=== PATIENT | female | born 1965 | race Caucasian/White ===

== ENCOUNTER 2020-03-12 16:06 | Outpatient (REF) | payer MEDICARE, MEDICAID, SELFPAY ==
--- NOTE | 2020-03-12 | US_ITS ---
EXAMINATION: US THYROID CLINICAL INFORMATION: Nontoxic multinodular goiter. COMPARISON: Ultrasound soft tissue head/neck thyroid dated 04/15/2019 and 09/17/2018 TECHNIQUE: Linear transducer xavier-scale and color Doppler examination with attention to the region of the thyroid. FINDINGS: SIZE: Measurements of the thyroid lobes and nodules are given in sagittal, anteroposterior and transverse dimensions respectively. Right Thyroid Lobe: 4.7 x 1.5 x 1.7 cm, volume 6.3 mL. Previously 4.6 x 1.5 x 1.7 cm, volume 6.1 mL. Parenchyma: The gland echotexture is homogeneous. Thyroid vascularity is normal. Left Thyroid Lobe: 4.6 x 1.3 x 1.6 cm, volume 5.0 mL. Previously 4.7 x 1.2 x 1.9 cm, volume 5.6 mL. Parenchyma: The gland echotexture is homogeneous. Thyroid vascularity is normal. Isthmus: 0.3 cm in maximum AP dimension. Previously 0.4 cm. RIGHT THYROID LOBE: There are 2 nodules seen. 1. Location: Inferior. Size: 0.3 x 0.2 x 0.2 cm. Previous: 0.4 x 0.2 x 0.4 cm. 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 2. Location: Middle. Size: 0.7 x 0.4 x 0.5 cm. Previous: Not documented on the prior study. Nodule characteristics: Hypoechoic, smoothly marginated with intranodular flow. ISTHMUS: No nodules. LEFT THYROID LOBE: There are 4 nodules seen. 1. Location: Superior/middle. Size: 0.3 x 0.3 x 0.4 cm. Previous: 0.5 x 0.3 x 0.5 cm. Nodule characteristics: Hypoechoic, smoothly marginated with no intranodular flow but likely complex cyst. 2. Location: Superior/middle. Size: 0.9 x 0.7 x 0.8 cm. Previous: 1.1 x 0.7 x 0.8 cm. Nodule characteristics: Hypoechoic, smoothly marginated with intranodular flow. 3. Location: Middle. Size: 0.6 x 0.4 x 0.7 cm. Previous: 1.0 x 0.5 x 0.6 cm. Nodule characteristics: Hypoechoic, smoothly marginated with no intranodular flow. 4. Location: Middle/inferior. Size: 0.4 x 0.3 x 0.4 cm. Previous: 0.3 x 0.2 x 0.4 cm. Nodule characteristics: Hypoechoic, smoothly marginated with no intranodular flow. NODES: No lymphadenopathy is seen in the tissue surrounding the thyroid gland. US/US thyroid IMPRESSION: Bilateral centimeter or subcentimeter thyroid nodules nonsuspicious at this time.
== END 2020-03-12 16:07 | disposition home or self-care (01) ==
LOC: HO.US 16:06
PROVIDERS: Visit Provider Internal Medicine Endocrinology, Diabetes & Metabolism
DX: E04.2 Nontoxic multinodular goiter (principal)
CPT/HCPCS: 76536

== ENCOUNTER → 2020-04-15 08:54 | Outpatient (BNVA) | payer MEDICARE, MEDICAID, SELFPAY | PROVIDERS: PCP Internal Medicine; Referring Provider Internal Medicine; Visit Provider Internal Medicine Endocrinology, Diabetes & Metabolism | DX: E04.2 Nontoxic multinodular goiter (principal); E66.01 Morbid (severe) obesity due to excess calories; Z79.899 Other long term (current) drug therapy | CPT/HCPCS: Q3014 ==

== ENCOUNTER 2021-08-23 15:32 | Outpatient (REF) | payer MEDICARE, MEDICAID, SELFPAY ==
--- NOTE | ~2021-08-23 | XR_ITS ---
EXAMINATION: LUMBAR AND THORACIC SPINE CLINICAL INFORMATION: Low back pain. COMPARISON: None TECHNIQUE: Lumbar spine 3 views. Thoracic spine 2 views. FINDINGS: Lumbar spine: There is normal lumbar lordosis. There is minimal anterolisthesis L4 over L5. Rest the vertebral alignment is normal. There is loss of disc height virtually at every disc level with moderate ventral and posterior spondylosis. No acute fracture, dislocation or lytic process seen. The soft tissues are normal. Thoracic spine: There is maintained thoracic kyphosis. There is mild dextroscoliosis of dorsal spine. The vertebral heights, vertebral alignment and disc heights are normal. There is moderate spondylosis dorsal spine. No visible acute fracture or dislocation seen. Incidental finding of lower cervical fusion with ventral hardware noted. XR/XR lumbar spine 2-3V IMPRESSION: Degenerative disc changes with spondylosis at all lumbar disc levels. No acute fracture or lytic process seen. There is mild dextroscoliosis dorsal spine with right para midline spondylosis. No visible acute fracture or lytic process seen.
--- NOTE | ~2021-08-23 | XR_ITS ---
EXAMINATION: LUMBAR AND THORACIC SPINE CLINICAL INFORMATION: Low back pain. COMPARISON: None TECHNIQUE: Lumbar spine 3 views. Thoracic spine 2 views. FINDINGS: Lumbar spine: There is normal lumbar lordosis. There is minimal anterolisthesis L4 over L5. Rest the vertebral alignment is normal. There is loss of disc height virtually at every disc level with moderate ventral and posterior spondylosis. No acute fracture, dislocation or lytic process seen. The soft tissues are normal. Thoracic spine: There is maintained thoracic kyphosis. There is mild dextroscoliosis of dorsal spine. The vertebral heights, vertebral alignment and disc heights are normal. There is moderate spondylosis dorsal spine. No visible acute fracture or dislocation seen. Incidental finding of lower cervical fusion with ventral hardware noted. XR/XR thoracic spine 2V IMPRESSION: Degenerative disc changes with spondylosis at all lumbar disc levels. No acute fracture or lytic process seen. There is mild dextroscoliosis dorsal spine with right para midline spondylosis. No visible acute fracture or lytic process seen.
== END 2021-08-23 15:33 | disposition home or self-care (01) ==
LOC: HO.XRAY 15:32
PROVIDERS: PCP Internal Medicine; Visit Provider Internal Medicine
DX: M54.50 Low back pain, unspecified (principal); M54.6 Pain in thoracic spine
CPT/HCPCS: 72070; 72100

== ENCOUNTER 2021-10-25 21:43 | Emergency (ER) | payer MEDICARE, MEDICAID, SELFPAY ==
[2021-10-25 22:01] VITALS: BP 129/57; PULSE 93; RESP 18; TEMP 36.9; O2SAT 96; BMI 51.2
[2021-10-25 22:22] VITALS: BP 132/60; PULSE 92; TEMP 37.1; O2SAT 97
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
== END 2021-10-25 23:06 | disposition home or self-care (01) ==
PROVIDERS: Emergency Provider Internal Medicine; PCP Internal Medicine
DX: S61.213A Laceration without foreign body of left middle finger without damage to nail, initial encounter (principal); W29.3XXA Contact with powered garden and outdoor hand tools and machinery, initial encounter; Y93.H2 Activity, gardening and landscaping; Y92.017 Garden or yard in single-family (private) house as the place of occurrence of the external cause; Y99.9 Unspecified external cause status
CPT/HCPCS: 99282; 99283

== ENCOUNTER 2021-11-11 14:02 | Outpatient (REF) | payer MEDICARE, MEDICAID, SELFPAY ==
--- NOTE | ~2021-11-11 | US_ITS ---
EXAMINATION: US THYROID CLINICAL INFORMATION: Nontoxic multinodular goiter. COMPARISON: US thyroid 03/12/2020 and 04/15/2019. TECHNIQUE: Linear transducer grayscale and color Doppler examination with attention to the region of the thyroid. FINDINGS: SIZE: Measurements of the thyroid lobes and nodules are given in sagittal, anteroposterior and transverse dimensions respectively. Right Thyroid Lobe: 5.1 x 1.6 x 2.0 cm, volume 8.6 mL. Previously 4.7 x 1.5 x 1.7 cm, volume 6.3 mL. Parenchyma: The gland echotexture is homogeneous. Thyroid vascularity is normal. Left Thyroid Lobe: 4.4 x 1.2 x 1.8 cm, volume 5.0 mL. Previously 4.6 x 1.3 x 1.6 cm, volume 5.0 mL. Parenchyma: The gland echotexture is homogeneous. Thyroid vascularity is normal. Isthmus: 0.3 cm in maximum AP dimension. Previously 0.3 cm. Estimated total number of nodules greater than or equal to 1 cm: 1. Laboratory [place] nodules are described as follows: 1. Location: Left superior. Size: 1.2 x 0.9 x 0.9 cm, volume 0.53 mL. Previously: 0.9 x 0.7 x 0.8 cm, volume 0.26 mL. Nodule characteristics: Composition: Solid (2). Echogenicity: Hypoechoic (2). Shape: Not taller than wide (0). Margins: Ill-defined (0). Echogenic Foci: None (0). ACR TI-RADS total points: 4 ACR TI-RADS category: 4 Significant change in size (>/= 20% in 2 dimensions and minimal increase of 2 mm or 50% or greater increase in volume): Minimal. Change in features: None. Change in ACR TI-RADS risk category: Not applicable. NODES: No lymphadenopathy is seen in the tissue surrounding the thyroid gland. US/US thyroid IMPRESSION: No significant change in the size of the left upper pole nodule. Recommend continued follow-up. The thyroid gland is unremarkable with no major change. ACR TI-RADS RECOMMENDATION REFERENCE: Ultrasound-guided fine-needle aspiration, followup ultrasound, no further follow up. * TR1 (0 point) and TR 2 (2 points): No FNA or follow up * TR3 (3 points): FNA if more than or equal to 2.5 cm in maximum dimension, followup ultrasound in 1, 3 and 5 years if 1.5 to 2.4 cm in maximum dimension. * TR4 (4-6 points): FNA if more than or equal to 1.5 cm in maximum dimension, followup ultrasound in 1, 2, 3 and 5 years if 1 to 1.4 cm in maximum dimension. * TR5 (more than or equal to 7 points): FNA if more than or equal to 1 cm in maximum dimension, followup ultrasound every year for 5 years if 0.5 to 0.9 cm in maximum dimension. * TR3, TR4 or TR5 nodules that are below the size threshold for follow up receive no follow up.
== END 2021-11-11 14:03 | disposition home or self-care (01) ==
LOC: HO.HMGCX 14:02
PROVIDERS: Visit Provider Internal Medicine
DX: E04.2 Nontoxic multinodular goiter (principal)
CPT/HCPCS: 76536

== ENCOUNTER 2021-11-29 11:29 | Outpatient (REF) | payer MEDICARE, MEDICAID, SELFPAY ==
--- NOTE | ~2021-11-29 | XR_ITS ---
EXAMINATION: XR RIBS, RIGHT CLINICAL INFORMATION: Contusion to chest wall COMPARISON: None TECHNIQUE: 3 views of the right ribs and one view of the chest were obtained. FINDINGS: The cardiac and mediastinal contours are stable. The lungs are clear. There is no pleural effusion or pneumothorax. No rib fracture is seen. There are degenerative changes of the spine. There are postsurgical changes to the cervical spine. XR/XR ribs RT min 3V w CXR1V IMPRESSION: No evidence for acute disease in the chest. No rib fracture seen.
== END 2021-11-29 11:30 | disposition home or self-care (01) ==
LOC: HO.HMGCX 11:29
PROVIDERS: Visit Provider Internal Medicine
DX: S20.211A Contusion of right front wall of thorax, initial encounter (principal); X58.XXXA Exposure to other specified factors, initial encounter; Y93.9 Activity, unspecified; Y92.9 Unspecified place or not applicable; Y99.8 Other external cause status
CPT/HCPCS: 71101

== ENCOUNTER → 2022-04-21 11:09 | Outpatient (REF) | payer MEDICARE, MEDICAID, SELFPAY ==
--- NOTE | 2022-04-21 11:22 | CA_ITS ---
Acquisition Time: 2022-04-21 12:03:45 Total Exercise Time: 00:12:47 Test Indications: R07.9 CHEST PAIN Medications: Protocol: DOBUTAMINE Max HR: 146 BPM 90% of Pred: 162 BPM Max BP: 160/070 mmHG Max Work Load: 1.0 METS Pharmacological stress with Dobutamin infusion per protocol to max of 20mcg/kg/min, achieving 88% MPHR, without anginal symptoms, without arrythmia, with normotensive response to infusion, without EKG changes meeting criteria for ischemia. Echo images obtained by tech at rest, at dobutamine dose of 10mcg/kg/ min and again at peak heart rate. Definity contrast used. Test reviewed with Dr Tyler. Referred By: Alirio Valdovinos Overread By: OCTAVIA MILLER
== END ==
LOC: HO.CARD 11:09
PROVIDERS: PCP Internal Medicine; Visit Provider Internal Medicine
DX: R07.9 Chest pain, unspecified (principal)
CPT/HCPCS: 93351; J0280; J1250; J2785; Q9957

== ENCOUNTER → 2022-11-17 14:38 | Outpatient (BNVA) | payer MEDICARE, MEDICAID, SELFPAY | PROVIDERS: PCP Internal Medicine; Visit Provider Physician Assistant | DX: Z12.11 Encounter for screening for malignant neoplasm of colon (principal); J45.909 Unspecified asthma, uncomplicated | CPT/HCPCS: 99202 ==

== ENCOUNTER 2023-02-09 14:16 | Outpatient (AMB) | payer MEDICARE, MEDICAID, SELFPAY ==
[2023-02-09 14:17] VITALS: BP 128/72; PULSE 73; O2SAT 97; BMI 49.0
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
== END 2023-02-09 15:19 | disposition home or self-care (01) ==
PROVIDERS: PCP Internal Medicine; Visit Provider Internal Medicine
DX: I10 Essential (primary) hypertension (principal); K21.9 Gastro-esophageal reflux disease without esophagitis; E04.1 Nontoxic single thyroid nodule; E66.01 Morbid (severe) obesity due to excess calories; Z68.42 Body mass index [BMI] 45.0-49.9, adult; F41.1 Generalized anxiety disorder; E78.00 Pure hypercholesterolemia, unspecified
CPT/HCPCS: 99214

== ENCOUNTER 2023-02-24 11:32 | Outpatient (REF) | payer MEDICARE, MEDICAID, SELFPAY | END 2023-02-24 11:33 | disposition home or self-care (01) | LOC: HO.HMGCX 11:32 | PROVIDERS: PCP Internal Medicine; Visit Provider Internal Medicine | DX: E04.1 Nontoxic single thyroid nodule (principal) | CPT/HCPCS: 76536 ==

== ENCOUNTER 2023-04-03 12:26 | Day surgery (SDC) | payer MEDICARE, MEDICAID, SELFPAY ==
[2023-04-03 13:15] VITALS: BP 133/83; PULSE 87; RESP 16; TEMP 37; O2SAT 98; BMI 49.4
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
--- NOTE | 2023-04-03 15:29 | W.PM.OPN ---
Operative Note Operative Note Date of Service: 04/03/23 Narrative: COLONOSCOPY TILL CECUM WITH SNARE POLYPECTOMY Pre-op diagnosis: Colon cancer screening(1st colonoscopy) Post-op diagnosis:? Colon polyps, diverticulosis, hemorrhoids Endoscopist:? Gin Ortega MD Anesthesia:?MAC Consent: Indications for the procedure and potential complications of bleeding, perforation, reaction to medications and missed diagnosis were discussed with the patient and informed consent was obtained. Instrument: Olympus PCF H 190 L variable stiffness pediatric colonoscope Monitoring: Vital signs and clinical assessment, intermittent blood pressure monitoring, continuous EKG monitoring, Pulse oximetry and Carbon Dioxide monitoring were done throughout the procedure. Please see anesthesia flowsheet. Colon withdrawl time was 24 minutes. Procedure: The patient was placed in the left lateral decubitis position and pre-procedure medications were administered. After a digital rectal examination of the ano-rectum, the video colonoscope was inserted into the rectum and advanced through the colon to the cecum. The colonoscope was slowly withdrawn in a retrograde panoramic fashion and the colon mucosa was carefully examined including a retroflexed view of the rectum. Findings and interventions are described below. Procedure Difficulty: Without difficulty Findings: Terminal Ileum: Not evaluated Cecum: Two 12 to 18 mm sessile polyps overlying a fold - removed with a hot snare Ascending Colon: Normal Transverse Colon: A 10-12 mm sessile polyp - removed with a hot snare A 5-6 mm sessile polyp - removed with a cold snare. Descending Colon: A10 mm sessile polyp - ablated with a hot snare Sigmoid Colon: Moderate diverticulosis Rectum: Normal Ano-rectum: Small internal hemorrhoids Colon preparation: Good after some irrigation Impression and Post Procedure Diagnosis: Colonoscopy Findings: Four medium sized and one small polyps removed Moderate diverticulosis seen in the sigmoid colon Small hemorrhoids on retroflexed exam. Plan: Await pathology results Patient has an appointment on 04/19/23 in the GI Clinic with [facility] . Repeat Colonoscopy interval based on path results - in 3 years if polyps are adenomatous and 10 years if polyps are hyperplastic. Above findings were reviewed with the patient and colon polyps and diverticulosis handouts were given in the discharge area.
[2023-04-03 15:30] VITALS: BP 86/46; PULSE 72; RESP 16; TEMP 36.6; O2SAT 96
[2023-04-03 15:45] VITALS: BP 98/58; PULSE 67; RESP 18; TEMP 36.2; O2SAT 95
== END 2023-04-03 16:25 | disposition home or self-care (01) ==
PROVIDERS: PCP Internal Medicine; Visit Provider Internal Medicine Gastroenterology
PROC: 0DJD8ZZ Inspection of Lower Intestinal Tract, Via Natural or Artificial Opening Endoscopic (ICD-10-PCS; CPT 45378; principal; 2023-04-03 14:20)
DX: Z12.11 Encounter for screening for malignant neoplasm of colon (principal); D12.0 Benign neoplasm of cecum; K63.89 Other specified diseases of intestine; K57.30 Diverticulosis of large intestine without perforation or abscess without bleeding; K64.8 Other hemorrhoids; I10 Essential (primary) hypertension; E78.00 Pure hypercholesterolemia, unspecified; K21.9 Gastro-esophageal reflux disease without esophagitis; J45.909 Unspecified asthma, uncomplicated; E66.01 Morbid (severe) obesity due to excess calories; Z68.43 Body mass index [BMI] 50.0-59.9, adult; Z79.899 Other long term (current) drug therapy
CPT/HCPCS: 45385; 88305; J2704

== ENCOUNTER → 2023-04-03 12:26 | Outpatient (BNV) | payer MEDICARE, MEDICAID, SELFPAY | PROVIDERS: PCP Internal Medicine; Visit Provider Internal Medicine Gastroenterology | DX: Z12.11 Encounter for screening for malignant neoplasm of colon (principal); K57.30 Diverticulosis of large intestine without perforation or abscess without bleeding; K64.8 Other hemorrhoids; D12.0 Benign neoplasm of cecum; D12.3 Benign neoplasm of transverse colon; D12.4 Benign neoplasm of descending colon | CPT/HCPCS: 45385 ==

== ENCOUNTER 2023-05-26 14:43 | Outpatient (AMB) | payer MEDICARE, MEDICAID, SELFPAY ==
[2023-05-26 14:46] VITALS: BP 126/84; PULSE 69; O2SAT 100; BMI 51.0
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
== END 2023-05-26 15:54 | disposition home or self-care (01) ==
PROVIDERS: PCP Internal Medicine; Visit Provider Internal Medicine
DX: M17.9 Osteoarthritis of knee, unspecified (principal); E04.2 Nontoxic multinodular goiter; E66.01 Morbid (severe) obesity due to excess calories; Z68.43 Body mass index [BMI] 50.0-59.9, adult; I10 Essential (primary) hypertension; K21.9 Gastro-esophageal reflux disease without esophagitis; F41.1 Generalized anxiety disorder; K57.90 Diverticulosis of intestine, part unspecified, without perforation or abscess without bleeding
CPT/HCPCS: 99214

== ENCOUNTER 2023-06-02 14:01 | Outpatient (AMB) | payer MEDICARE, MEDICAID, SELFPAY ==
[2023-06-02 14:47] VITALS: BP 124/80; PULSE 71; TEMP 36.6; O2SAT 96; BMI 50.7
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
== END 2023-06-02 17:00 ==
PROVIDERS: PCP Internal Medicine; Visit Provider Physician Assistant Medical
DX: S63.501A Unspecified sprain of right wrist, initial encounter (principal)
CPT/HCPCS: 99213

== ENCOUNTER 2023-06-02 15:22 | Outpatient (REF) | payer MEDICARE, MEDICAID, SELFPAY ==
--- NOTE | ~2023-06-02 | XR_ITS ---
EXAMINATION: XR WRIST, RIGHT XR HAND, RIGHT CLINICAL INFORMATION: Pain COMPARISON: None available. TECHNIQUE: PA, lateral, and oblique views of the right wrist and hand FINDINGS: Examination of the right hand and wrist shows no plain film osseous, articular or soft tissue abnormalities. In particular, no fracture, dislocation, bone lesion or foreign body is evident. XR/XR hand wrist RT IMPRESSION: Unremarkable plain radiographic examination of the right hand and wrist
== END 2023-06-02 15:23 | disposition home or self-care (01) ==
LOC: HO.HMGCX 15:22
PROVIDERS: PCP Internal Medicine; Visit Provider Physician Assistant Medical
DX: M25.531 Pain in right wrist (principal)
CPT/HCPCS: 73110; 73130

== ENCOUNTER 2023-07-07 16:48 | Outpatient (AMB) | payer MEDICARE, MEDICAID, SELFPAY ==
[2023-07-07 16:55] VITALS: BP 124/90; PULSE 70; O2SAT 100; BMI 52.5
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
== END 2023-07-07 17:47 | disposition home or self-care (01) ==
PROVIDERS: PCP Internal Medicine; Visit Provider Internal Medicine
DX: M25.531 Pain in right wrist (principal); E66.01 Morbid (severe) obesity due to excess calories; Z68.43 Body mass index [BMI] 50.0-59.9, adult; M17.9 Osteoarthritis of knee, unspecified; I10 Essential (primary) hypertension; M54.2 Cervicalgia; R13.10 Dysphagia, unspecified
CPT/HCPCS: 99214

== ENCOUNTER 2023-07-31 10:38 | Outpatient (REF) | payer MEDICARE, MEDICAID, SELFPAY ==
--- NOTE | ~2023-07-31 | XR_ITS ---
EXAMINATION: XR CERVICAL SPINE CLINICAL INFORMATION: Worsening neck pain, patient with history of ACDF COMPARISON: None available. TECHNIQUE: 3 views of the cervical spine were obtained. FINDINGS: Straightening of normal cervical lordosis. C5-C6 surgical hardware. 2Inferior screws protrude anteriorly relative to the plate but there is no evidence of loosening posteriorly. There is no previous study with which to compare to assess for stability. Odontoid is intact. Posterior elements are aligned and no prevertebral soft tissue swelling seen. Lung apices are clear. Calcifications right cervical region likely vascular. XR/XR cervical spine 2V IMPRESSION: C5-C6 ACDF as described. Cervical lordotic straightening.
--- NOTE | ~2023-07-31 | FL_ITS ---
EXAMINATION: XR FLUOROSCOPY UPPER GI WITH AIR CLINICAL INFORMATION: Dysphagia. Reflux. COMPARISON: 05/07/2014 TECHNIQUE: Fluoroscopic air contrast upper GI examination was performed utilizing standard techniques with thin and thick barium and effervescent granules. Numerous spot images were obtained. FINDINGS: Status post anterior cervical fusion of C5-C6, with intervening disc graft and anterior plate and interbody screws. Lateral cine images of the oropharynx and hypopharynx demonstrate normal swallow mechanism with normal epiglottic inversion and soft palate elevation. Trace laryngeal penetration was seen with thick barium. No glottic or subglottic aspiration identified. No nasopharyngeal reflux present. Hypopharyngeal structures appear normal without evidence of mass or diverticulum. There was no significant cricopharyngeal achalasia. Dual and single contrast images of the esophagus demonstrate normal caliber and contour. There is felinization of the mid and distal esophagus. No evidence of stricture, mass, or ulcerations identified. Esophageal peristalsis was normal. A moderate-sized type I hiatal hernia is present. Gastroesophageal reflux is seen up to the distal esophagus. Dual contrast and single contrast images of the stomach demonstrated a normal contour. The gastric rugal folds appear mildly thickened. There are a few small areas of contrast pooling in the body of the stomach that may represent small superficial apthous type ulcers. No evidence of mass or other abnormalities are present. Contrast freely passed into the gastric antrum and duodenal bulb without delay. Single and air-contrast images of the duodenal bulb demonstrate no abnormality. The duodenal sweep has a normal appearance, course, and mucosal fold appearance. No malrotation. The imaged proximal jejunum has a normal fold pattern and caliber. FLUOROSCOPY TIME: 3 minutes 48 seconds Number of Spot Images: 15 Number of Cine: 12 DOSE AREA PRODUCT: 3343 uGy-m2 (microgray-meter squared) FL/FL barium swallow IMPRESSION: 1. Trace laryngeal penetration with thick barium. No subglottic aspiration. 2. Felinization of the mid and distal esophagus. This represents a benign mucosal change that can be associated with gastroesophageal reflux. 3. Moderate-sized type I hiatal hernia. 4. Mild gastroesophageal reflux is seen during this examination. 5. Mildly thickened gastric rugal folds, in addition to a few small areas of contrast pooling in the body of the stomach. These findings likely represent erosive gastritis. Recommend correlation with EGD. 6. Status post anterior cervical fusion of C5-C6. No complication evident. This procedure was performed by Aaron Cardona PA-C, and supervised by Dr. Husain
== END 2023-07-31 10:39 | disposition home or self-care (01) ==
LOC: HO.XRAY 10:38
PROVIDERS: PCP Internal Medicine; Visit Provider Internal Medicine
DX: R13.10 Dysphagia, unspecified (principal); M54.2 Cervicalgia
CPT/HCPCS: 72040; 74220

== ENCOUNTER → 2023-07-31 10:41 | Outpatient (BNV) | payer MEDICARE, MEDICAID, SELFPAY | PROVIDERS: PCP Internal Medicine; Visit Provider Physician Assistant Surgical | DX: R13.10 Dysphagia, unspecified (principal); K21.9 Gastro-esophageal reflux disease without esophagitis | CPT/HCPCS: 74221 ==

== ENCOUNTER 2023-10-19 12:25 | Outpatient (AMB) | payer MEDICARE, MEDICAID, SELFPAY ==
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
[2023-10-19 12:30] VITALS: BP 121/47; PULSE 72; BMI 51.0
== END 2023-10-19 13:42 | disposition home or self-care (01) ==
PROVIDERS: PCP Internal Medicine; Visit Provider Physician Assistant
DX: R93.3 Abnormal findings on diagnostic imaging of other parts of digestive tract (principal); R13.10 Dysphagia, unspecified; K57.90 Diverticulosis of intestine, part unspecified, without perforation or abscess without bleeding; Z86.010 Personal history of colon polyps; M50.90 Cervical disc disorder, unspecified, unspecified cervical region
CPT/HCPCS: 99204

== ENCOUNTER → 2023-10-19 12:25 | Outpatient (BNVA) | payer MEDICARE, MEDICAID, SELFPAY | PROVIDERS: PCP Internal Medicine; Visit Provider Physician Assistant | DX: K57.90 Diverticulosis of intestine, part unspecified, without perforation or abscess without bleeding (principal); R93.3 Abnormal findings on diagnostic imaging of other parts of digestive tract; R13.10 Dysphagia, unspecified; M50.90 Cervical disc disorder, unspecified, unspecified cervical region; Z86.010 Personal history of colon polyps | CPT/HCPCS: 99202 ==

== ENCOUNTER 2023-11-17 11:06 | Outpatient (REF) | payer MEDICARE, MEDICAID, SELFPAY ==
[2023-11-17 13:10] LABS: MANUAL DIFF FLAG NO
[2023-11-17 13:20] LABS: Basophils Absolute Auto 0.1 X10*3/uL (0.0-0.2); Basophils Percent Auto 1.1 % (0-2); Eosinophils Absolute Auto 0.2 X10*3/uL (0.0-0.4); Hematocrit 40.1 % (37.0-47.0); Hemoglobin 13.1 g/dl (12.0-16.0); Imm Gran Abs Auto 0.03 X10*3/uL (0.00-0.03); Imm Gran Pct Auto 0.5 % (0.0-0.4); Lymphocytes Absolute Auto 1.9 X10*3/uL (1.2-4.9); Mean Corpuscular HGB Conc 32.7 g/dl (31.0-35.0); Mean Corpuscular Hemoglobin 31.4 pg (27.0-33.0); Mean Corpuscular Volume 96.2 fL (80.0-98.0); Mean Platelet Volume 9.4 fL (9.4-12.3); Monocytes Absolute Auto 0.4 X10*3/uL (0.1-1.2); Monocytes Percent Auto 6.4 % (2-11); Neutrophils Absolute Auto 3.7 x10*3/uL (2.0-8.3); Platelet Count 410 X10*3/uL (160-400); Red Blood Count 4.17 X10*6/uL (4.20-5.50); Red Cell Distribution Width 12.3 % (11.0-16.0); White Blood Count 6.3 X10*3/uL (4.8-10.8)
[2023-11-17 13:40] LABS: Alanine Aminotransferase 16 U/L (0-31); Albumin Level 4.3 g/dL (3.5-5.0); Alkaline Phosphatase 84 U/L (39-117); Anion Gap 14 (12-20); Aspartate Amino Transferase 20 U/L (5-31); Bilirubin Total 0.5 mg/dL (0.0-1.0); Blood Urea Nitrogen 31 mg/dL (9-16); Calcium 10.2 mg/dL (8.4-10.2); Carbon Dioxide 24 mmol/L (22-29); Chloride 108 mmol/L (96-108); Cholesterol 261 mg/dL (<200); Estimated Glomerular Filt Rate > 60; Glucose Random 93 mg/dL (60-115); HDL Cholesterol 57 mg/dL (>40); LDL Cholesterol Calculated 188 mg/dL (<100); Potassium 4.9 mmol/L (3.3-5.1); Sodium 141 mmol/L (135-145); Total Protein 7.3 g/dL (6.5-8.0); Triglycerides 83 mg/dL (<150)
[2023-11-17 14:00] LABS: Free T4 (Free Thyroxine) 1.04 ng/dL (0.71-1.85); Thyroid Stimulating Hormone 1.11 uIU/mL (0.32-4.0); Vitamin D 25-OH Total 61.7 ng/mL (>30)
[2023-11-17 14:04] LABS: Folate 9.6 ng/mL (> or = 4.0); Vitamin B12 813 pg/mL (200-900)
== END 2023-11-17 11:07 | disposition home or self-care (01) ==
LOC: HO.HMGCLDS 11:06
PROVIDERS: PCP Internal Medicine; Visit Provider Internal Medicine
DX: E78.00 Pure hypercholesterolemia, unspecified (principal)
CPT/HCPCS: 36415; 80053; 80061; 82306; 82607; 82746; 83735; 84439; 84443; 85025

== ENCOUNTER 2023-11-18 10:00 | Outpatient (REF) | payer MEDICARE, MEDICAID, SELFPAY | END 2023-11-18 10:01 | disposition home or self-care (01) | LOC: HO.HMGCLNP 10:00 | PROVIDERS: PCP Internal Medicine; Visit Provider Physician Assistant | DX: A04.8 Other specified bacterial intestinal infections (principal) | CPT/HCPCS: 87338 ==

== ENCOUNTER 2024-01-05 10:15 | Outpatient (REF) | payer MEDICARE, MEDICAID, SELFPAY | END 2024-01-05 10:16 | disposition home or self-care (01) | LOC: HO.HMGCLNP 10:15 | PROVIDERS: PCP Internal Medicine; Visit Provider Internal Medicine | DX: A04.8 Other specified bacterial intestinal infections (principal) | CPT/HCPCS: 87338 ==

== ENCOUNTER 2024-01-11 08:36 | Outpatient (AMB) | payer MEDICARE, MEDICAID, SELFPAY ==
[2024-01-11 08:37] VITALS: BP 128/82; PULSE 72; O2SAT 98; BMI 51.6
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
== END 2024-01-11 09:16 | disposition home or self-care (01) ==
PROVIDERS: PCP Internal Medicine; Visit Provider Internal Medicine
DX: A04.8 Other specified bacterial intestinal infections (principal); E66.01 Morbid (severe) obesity due to excess calories; K29.60 Other gastritis without bleeding; Z68.43 Body mass index [BMI] 50.0-59.9, adult; K21.9 Gastro-esophageal reflux disease without esophagitis; E78.00 Pure hypercholesterolemia, unspecified; I10 Essential (primary) hypertension; M50.90 Cervical disc disorder, unspecified, unspecified cervical region
CPT/HCPCS: 99214

== ENCOUNTER 2024-05-06 16:08 | Outpatient (AMB) | payer MEDICARE, MEDICAID, SELFPAY ==
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
[2024-05-06 16:18] VITALS: BP 140/70; PULSE 83; O2SAT 97; BMI 53.6
== END 2024-05-06 17:25 | disposition home or self-care (01) ==
PROVIDERS: PCP Internal Medicine; Visit Provider Internal Medicine
DX: I10 Essential (primary) hypertension (principal); E78.00 Pure hypercholesterolemia, unspecified; E66.01 Morbid (severe) obesity due to excess calories; Z68.43 Body mass index [BMI] 50.0-59.9, adult; Z86.0100 Personal history of colon polyps, unspecified; F41.1 Generalized anxiety disorder; K21.9 Gastro-esophageal reflux disease without esophagitis; J45.20 Mild intermittent asthma, uncomplicated; M17.0 Bilateral primary osteoarthritis of knee

== ENCOUNTER → 2024-05-06 16:08 | Outpatient (BNVA) | payer MEDICARE, MEDICAID, SELFPAY | PROVIDERS: PCP Internal Medicine; Visit Provider Internal Medicine | DX: E66.01 Morbid (severe) obesity due to excess calories (principal); I10 Essential (primary) hypertension; E78.00 Pure hypercholesterolemia, unspecified; F41.1 Generalized anxiety disorder; K21.9 Gastro-esophageal reflux disease without esophagitis; J45.20 Mild intermittent asthma, uncomplicated; M17.0 Bilateral primary osteoarthritis of knee; Z86.0100 Personal history of colon polyps, unspecified | CPT/HCPCS: 99212 ==

== ENCOUNTER 2024-06-04 08:48 | Outpatient (AMB) | payer MEDICARE, MEDICAID, SELFPAY ==
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
== END 2024-06-04 09:53 | disposition home or self-care (01) ==
PROVIDERS: PCP Internal Medicine; Visit Provider Internal Medicine
DX: R09.81 Nasal congestion (principal)

== ENCOUNTER 2024-08-06 12:40 | Outpatient (AMB) | payer MEDICARE, MEDICAID, SELFPAY ==
[2024-08-06 12:43] VITALS: BP 124/82; PULSE 86; O2SAT 98; BMI 54.5
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
--- OUTSIDE RECORDS SUMMARY | 2024-08-06 14:52 | XMS_ITS | Clinical Summary ---
Author Organization [facility] Address [address] [place] [address] Care Team Providers Care Director Of Home Economics Name Role Phone Unavailable Primary Care Provider Unavailabl e Social History Tobacco Use Types Packs/Day Years Used Date Smoking Tobacco: Never Assessed Comments Unknown Sex and Gender Information Value Date Recorded Sex Assigned at Not on file Legal Sex Female 12:19 PM EST Gender Identity Not on file Sexual Orientation Not on file Plan of Treatment Health Maintenance Due Date Last Done Comments DTaP,Tdap,and Td Vaccines (1 - Tdap) 1982 Cervical Cancer Screening: Pap Smear 1984 Pneumococcal Vaccine: 50+ Years (1 of 1 - PCV) 2013 Zoster Vaccines (1 of 2) 2013 Colorectal Cancer Screening: Colonoscopy 04/19/2022 Depression Screening 04/19/2022 HIV Screening 04/19/2022 Hepatitis C Screening 04/19/2022 Social Influencers of Health Screening 04/19/2022 COVID-19 Vaccine ( - season) 2024 Influenza Vaccine (#1) 2024 Breast Cancer Screening 12/27/2025 12/28/19 24, 11/15/2022, 09/03/2021, Additional history exists RSV Immunization Patients 60+ Years Old (1 - 1-dose 75+ series) 2038 HIB Vaccines Aged Out No longer eligi ble based on patient's age to complete this topic HPV Vaccines Aged Out No longer eligi ble based on patient's age to complete this topic Hepatitis A Vaccines Aged Out No long er eligible based on patient's age to complete this topic Hepatitis B Vaccines Aged Out No long er eligible based on patient's age to complete this topic IPV Vaccines Aged Out No longer eligi ble based on patient's age to complete this topic MMR Vaccines Aged Out No longer eligi ble based on patient's age to complete this topic Meningococcal ACWY Vaccine Aged Out N o longer eligible based on patient's age to complete this topic Meningococcal B Vacine Aged Out No lo nger eligible based on patient's age to complete this topic Pneumococcal Vaccine: Pediatrics (0 to 5 Years) and At-Risk Patients (6 to 64 Years) Aged Out No longer eligible based on patient's age to complete this topic RSV Immunization Patients Under 20 months Aged Out No longer eligible based on patient's age to complete this topic Varicella Vaccines Aged Out No longer eligible based on patient's age to complete this topic Procedures Procedure Name Priority Date/Time Associated Diagnosis Comments [facility] SCREENING DIGITAL Routine 12/28/2023 5:18 PM EDT Encounter for screening mammogram for malignant neoplasm of breast from Last 3 Months or Most Recently Relevant to Health Maintenance Results * [facility] SCREENING DIGITAL (12/28/2023 5:18 PM EDT) Anatomical Region Laterality Modality Mammography 12/28/2023 11:1 5 AM EDT Narrative 12/28/2023 5:18 PM EDT [facility] Diagnostic Imaging Department [address] [place], [place] [id number] Patient: ??ANNETTE BARBOZA ?/Age/Sex: 1965 - 58 - F Unit#: ??[id number] ? Location/Status: ??SPDIMAM/REG CLI ? Mnemonic/Ordering Site: ??DIGSC/SPMAM Ordering Physician: ??ALYSE WALSH MD [facility] Screening Digital - 12/28/23 - 1132 Report Status:Signed EXAM: [facility] Screening Digital EXAM DATE AND TIME: 12/28/2023 11:33 AM HISTORY: ??Screening. COMPARISON: ??11/15/22, 09/03/21, 12/12/18 TECHNIQUE: Bilateral digital breast tomosynthesis was performed in the CC and MLO projections. Computer aided detection with DevHD 3D 3.1 was employed. TISSUE DENSITY: a. The breasts are almost entirely fatty. FINDINGS: No suspicious masses, grouped microcalcifications, or areas of architectural distortion are seen. Multiple benign rim calcifications are again seen. The skin and vascularity are unremarkable. IMPRESSION: Stable mammographic appearance of the breasts. ??No evidence of malignancy is seen. A negative mammogram in the presence of a clinically suspicious palpable abnormality does not preclude the possibility of malignancy or alter the indications for biopsy. BI-RADS: ??Category 2: Benign RECOMMENDATION(S): 1: Routine screening mammogram BILATERAL in 1 year. Dictating Physician: ??SMITHA PLUMMER MD Electronically Signed by: ??SMITHA PLUMMER MD Dic Date/Time: ??12/28/231717 Sign date/Time: ??12/28/231717 Procedure Note Smitha Plummer MD - 03/06/2024 [facility] Diagnostic Imaging Department [address] [place] [address] Patient: ANNETTE BARBOZA Tyrone WoodardB./Age/Sex: 1965 - 58 - F Unit#: [id number] Location/Status: [facility] CLI Mnemonic/Ordering Site: [facility] Ordering Physician: ALYSE WALSH MD [facility] Screening Digital - 12/28/23 - 1132 Report Status:Signed EXAM: [facility] Screening Digital EXAM DATE AND TIME: 12/28/2023 11:33 AM HISTORY: Screening. COMPARISON: 11/15/22, 09/03/21, 12/12/18 TECHNIQUE: Bilateral digital breast tomosynthesis was performed in the CCand MLO projections. Computer aided detection with DevHD 3D 3.1was employed. TISSUE DENSITY: a. The breasts are almost entirely fatty. FINDINGS: No suspicious masses, grouped microcalcifications, or areas ofarchitectural distortion are seen. Multiple benign rim calcifications are again seen.The skin and vascularity are unremarkable. IMPRESSION: Stable mammographic appearance of the breasts. No evidence of malignancyis seen. A negative mammogram in the presence of a clinically suspicious palpable abnormality does not preclude the possibility of malignancy or alter the indications for biopsy. BI-RADS: Category 2: Benign RECOMMENDATION(S): 1: Routine screening mammogram BILATERAL in 1 year. Dictating Physician: SMITHA PLUMMER MD Electronically Signed by: SMITHA PLUMMER MD Dic Date/Time: 12/28/231717 Sign date/Time: 12/28/231717 Alyse Walsh MD IMG BI PROCEDURES Final Result from Last 3 Months or Most Recently Relevant to Health Maintenance
== END 2024-08-06 13:37 | disposition home or self-care (01) ==
LOC: HO.HMCH 12:40
PROVIDERS: PCP Internal Medicine; Visit Provider Internal Medicine
DX: Z00.00 Encounter for general adult medical examination without abnormal findings (principal); K29.60 Other gastritis without bleeding; E66.01 Morbid (severe) obesity due to excess calories; Z68.43 Body mass index [BMI] 50.0-59.9, adult; E04.1 Nontoxic single thyroid nodule; F41.1 Generalized anxiety disorder; J45.20 Mild intermittent asthma, uncomplicated; E78.00 Pure hypercholesterolemia, unspecified; I10 Essential (primary) hypertension

== ENCOUNTER → 2024-08-06 12:40 | Outpatient (BNVA) | payer MEDICARE, MEDICAID, SELFPAY | PROVIDERS: PCP Internal Medicine; Visit Provider Internal Medicine | DX: Z00.00 Encounter for general adult medical examination without abnormal findings (principal); K29.60 Other gastritis without bleeding; E04.1 Nontoxic single thyroid nodule; J45.20 Mild intermittent asthma, uncomplicated; F41.1 Generalized anxiety disorder; E78.00 Pure hypercholesterolemia, unspecified; I10 Essential (primary) hypertension; E66.01 Morbid (severe) obesity due to excess calories | CPT/HCPCS: 96127; 99396 ==

== ENCOUNTER 2025-02-11 09:37 | Outpatient (AMB) | payer MEDICARE, MEDICAID, SELFPAY ==
[2025-02-11 09:49] VITALS: BP 128/70; PULSE 74; O2SAT 96; BMI 52.5
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
--- OUTSIDE RECORDS SUMMARY | 2025-02-11 11:26 | XMS_ITS | Clinical Summary ---
Author Organization [facility] Address [address] [place] [address] Care Team Providers Care Quality Assurance Monitor Chassis Name Role Phone Unavailable Primary Care Provider [...] 2) 2013 Colorectal Cancer Screening: Colonoscopy 04/19/2022 HIV Screening 04/19/2022 Hepatitis C Screening 04/19/2022 Social Influencers of Health Screening 04/19/2022 Depression Screening 05/22/2024 COVID-19 Vaccine ( - season) 2025 Influenza Vaccine (#1) 2025 Breast Cancer Screening 12/27/2025 12/28/19 24, 11/15/2022, 09/03/2021, Additional history exists RSV Immunization Adult Patients (1 - 1-dose 75+ series) 2038 HIB [...] age to complete this topic Meningococcal B Vaccine Aged Out No l onger eligible based on patient's age to complete this topic RSV Immunization Patients Under 20 months Aged Out No longer eligible based on patient's age to complete this topic Varicella Vaccines Aged Out No longer eligible based on patient's age to complete this topic Procedures Procedure Name Priority Date/Time Associated Diagnosis Comments [facility] SCREENING DIGITAL Routine 12/28/2023 5:18 PM EDT Encounter for screening mammogram for malignant neoplasm of breast from Last 3 Months or Most Recently Relevant to Health Maintenance Results * [facility] SCREENING DIGITAL (12/28/2023 5:18 PM EDT) Anatomical Region Laterality Modality Mammography 12/28/2023 11:1 5 AM EDT Narrative 12/28/2023 5:18 PM EDT [facility] Diagnostic Imaging Department [address] [place] [address] Patient: ANNETTE BARBOZA Tyrone Santiago/Age/Sex: 1965 - 58 - F Unit#: [id number] Location/Status: [facility]/REG CLI Mnemonic/Ordering Site: DIGSC/SPMAM Ordering Physician: ALYSE WALSH MD [facility] Screening Digital - 12/28/23 - 1132 Report Status:Signed EXAM: [facility] Screening Digital EXAM DATE AND TIME: 12/28/2023 11:33 AM HISTORY: Screening. COMPARISON: 11/15/22, 09/03/21, 12/12/18 TECHNIQUE: Bilateral digital breast tomosynthesis was performed in the CC and MLO projections. Computer aided detection with Nightingale 3D 3.1 was employed. TISSUE DENSITY: a. The breasts are almost entirely fatty. FINDINGS: No suspicious masses, grouped microcalcifications, or areas of architectural distortion are seen. Multiple benign rim calcifications are again seen. The skin and vascularity are unremarkable. IMPRESSION: Stable mammographic appearance of the breasts. No evidence of malignancy is seen. A negative mammogram in the presence of a clinically suspicious palpable abnormality does not preclude the possibility of malignancy or alter the indications for biopsy. BI-RADS: Category 2: Benign RECOMMENDATION(S): 1: Routine screening mammogram BILATERAL in 1 year. Dictating Physician: SMITHA PLUMMER MD Electronically Signed by: SMITHA PLUMMER MD Dic Date/Time: 12/28/231717 Sign date/Time: 12/28/231717 Procedure Note Smitha Plummer MD - 03/06/2024 [facility] Diagnostic Imaging Department [address] [place] [address] Patient: ANNETTE BARBOZA./Age/Sex: 1965 - 58 - F Unit#: [id number] Location/Status: SPDIMAM/REG CLI Mnemonic/Ordering Site: [facility] Ordering Physician: ALYSE WALSH MD [facility] Screening Digital - 12/28/23 - 1132 Report Status:Signed EXAM: [facility] Screening Digital EXAM DATE AND TIME: 12/28/2023 11:33 AM HISTORY: Screening. COMPARISON: 11/15/22, 09/03/21, 12/12/18 TECHNIQUE: Bilateral digital breast tomosynthesis was performed in the CCand MLO projections. Computer aided detection with Nightingale 3D 3.1was employed. TISSUE DENSITY: a. The [...] Signed by: SMITHA PLUMMER MD Dic Date/Time: 12/28/23 1718 Sign date/Time: 12/28/23 1718 Alyse Walsh MD IMG BI PROCEDURES Final Result from Last 3 Months or Most Recently Relevant to Health Maintenance
--- OUTSIDE RECORDS SUMMARY | 2025-02-11 11:26 | XMS_ITS | Patient Health Record ---
Author Organization [facility] Address [address] [place] [address] Care Team Providers Care Direct Chill Casting Operator Name Role Phone Alyse Mcnulty MD Primary Care Provider Butch Capps Unavailable [phone] Reason For Referral No Information Medications Medication SIG (Take, Route, Frequency, Duration) Notes Start Date End Date Status Omeprazole 20 MG 1 capsule Orally Onc e a day Active Cyclobenzaprine HCl 10 MG TAKE 1 TABLET BY MOUTH 3 TIMES A DAY Oral for 30 Active Nabumetone 750 MG TAKE 1 TABLET BY MOUTH TWICE A DAY Oral for 90 Not-Taking Multivitamin Adults - Orally Active Vitamin C 500 MG 1 tablet Orally Once a day Active Glucosamine Chondr Complex 500-400 MG 1 capsule with a meal Orally twice a day Active Gabapentin 300 MG TAKE ONE CAPSULE BY MOUTH 3 TIMES A DAY Oral for 30 Active Lisinopril 10 MG TAKE 1 TABLET BY MOUTH EVERY DAY Oral for 90 Active Vitamin D 400 UNIT/ML 2 ml Orally Once a day Active Caltrate 600+D 600-800 MG-UNIT 1 tablet with a meal Orally Once a day Active Turmeric 500 MG Orally Acti ve CoQ10 100 MG 1 capsule with a shayna l Orally Once a day Active Social History Tobacco Use: Social History Observation Description Date Details (start date - stop date) Never Smoker NA - NA Tobacco Use/Smoking Question Answer Notes Patient is a nonsmoker Alcohol Screen Question Answer Notes Did you have a drink contain ing alcohol in the past year? Yes How often did you have a dri nk containing alcohol in the past year? Monthly or less (1 point) How many drinks did you have on a typical day when you were drinking in the past year? 1 or 2 drinks (0 point) How often did you have 6 or more drinks on one occasion in the past year? Never (0 point) Points 1 Interpretation Negative Section Notes: Nonsmoker; Very occasional d rink Problems Problem Type SNOMED Code ICD Code Onset Dates Problem Status W/U Status Risk Notes Problem [id number] Gastroesophageal reflux disease, esophagitis presence not specified (K21.9) Active confirmed Problem [id number] Esophageal dysph agia (R13.10) Active confirmed Plan Of Treatment Future Test Test Name Order Date UPPER GI ENDOSCOPY [place] DILATION OF ESOPH 10/11/2017 Insurance Providers Payer Name Payer Address Payer Phone Subscriber Number Group Number Insured Name Patient Relationship to Insured Coverage Start Date Coverage End Date MEDICARE OF [place] [address] [place] [address] [id number] JACQUIE BARBOZA Self - patient is the insured MEDICAID OF [facility] [address] [place] [phone] [id number] JACQUIE BARBOZA Self - patient is the insured Medical (General) History Medical History History ICD Code Asthma--inhaler prn Denies SD,DM,CVA,renal disease HTN Sleep study in 08/2017--? results Surgical History Surgery Date(Month/Year) Tonsillectomy C-spine disc C5-C6[place] [place]
== END 2025-02-11 10:24 | disposition home or self-care (01) ==
LOC: HO.HMCH 09:38
PROVIDERS: PCP Internal Medicine; Visit Provider Internal Medicine
DX: I10 Essential (primary) hypertension (principal); Z68.43 Body mass index [BMI] 50.0-59.9, adult; E66.01 Morbid (severe) obesity due to excess calories; E78.00 Pure hypercholesterolemia, unspecified; F41.1 Generalized anxiety disorder; K21.9 Gastro-esophageal reflux disease without esophagitis; M17.0 Bilateral primary osteoarthritis of knee

== ENCOUNTER → 2025-02-11 09:37 | Outpatient (BNVA) | payer MEDICARE, MEDICAID, SELFPAY | PROVIDERS: PCP Internal Medicine; Visit Provider Internal Medicine | DX: I10 Essential (primary) hypertension (principal); E78.00 Pure hypercholesterolemia, unspecified; F41.1 Generalized anxiety disorder; E66.01 Morbid (severe) obesity due to excess calories; K21.9 Gastro-esophageal reflux disease without esophagitis; M17.0 Bilateral primary osteoarthritis of knee; Z68.43 Body mass index [BMI] 50.0-59.9, adult | CPT/HCPCS: 99212 ==